=== PATIENT | female | born 1970 | race Caucasian/White ===

== ENCOUNTER 2016-12-09 08:56 | Day surgery (SDC) | payer BC ==
[~2016-12-09] VITALS: Ht 162.6 cm; Wt 64.4 kg
[~2016-12-09 08:56] MED LIST: AMOXIL500 M1 OR; ATENOLOL25 MG OR; ATENOLOL25 MG PO; ATIVAN0.5 MG PO; ATIVAN1 MG PO; B COMPLETE PO; CYCLOBENZAPRINE10 MG PO; CYMBALTA60 MG PO; DULOXETINE HCL60 MG PO; IMITREX25 MG PO; LEVOTHYROXIN25 MCG PO; LORAZEPAM1 MG PO; LORTAB 5 OR; LORTAB 5/3255 MG PO; MELOXICAM15 MG PO; NO; PERCOCET 5/321 COMBO PO; POTASSIUM CHLO20 ME1 PO; PREMARIN0.45 MG OR; PREVACID15 M1 PO; PROMETHAZINE25 MG OR; SARELLA PO; TENORMIN25 MG PO; TIZANIDINE HCL4 M1 PO; TOPAMAX50 M1 PO; VITA D-1000 OR; ZANAFLEX4 M2 OR; ZANAFLEX6 MG PO; ZOCOR10 MG PO
[2016-12-09] MEDS ORDERED: SAVELLA50 MG PO (09:04)
[2016-12-09 10:33] VITALS: BP 108/71
== END 2016-12-09 10:48 | disposition home or self-care (01) | DRG 379 ==
LOC: ENDO 08:56 → ORM 11:40 → ENDO 12:10 → ORM 21:15
PROVIDERS: ATTEND Internal Medicine Gastroenterology
PROC: 0DBE8ZX Excision of Large Intestine, Via Natural or Artificial Opening Endoscopic, Diagnostic (ICD-10-PCS; principal; 2016-12-09)
PROC: 0DBN8ZX Excision of Sigmoid Colon, Via Natural or Artificial Opening Endoscopic, Diagnostic (ICD-10-PCS; 2016-12-09)
DX: K62.5 Hemorrhage of anus and rectum (principal); K63.5 Polyp of colon; K64.4 Residual hemorrhoidal skin tags; R11.0 Nausea; K29.70 Gastritis, unspecified, without bleeding; R19.7 Diarrhea, unspecified; R63.4 Abnormal weight loss; R14.0 Abdominal distension (gaseous); M79.7 Fibromyalgia; K64.8 Other hemorrhoids

== ENCOUNTER 2017-10-27 20:37 | Emergency (ER) | payer BC ==
[~2017-10-27] VITALS: Ht 162.6 cm; Wt 71.0 kg
[~2017-10-27 20:37] MED LIST changes: +SAVELLA50 MG PO
[2017-10-27] MEDS ORDERED: CALCIUM + D3 601 TAB PO (21:09)
[2017-10-27] MEDS ORDERED: MECLIZINE25 MG PO (21:09)
[2017-10-27] MEDS ORDERED: VITAMIN B-12500 MCG PO (21:10)
[2017-10-27] MEDS ORDERED: BUSPIRONE5 MG PO (21:11)
[2017-10-27] MEDS ORDERED: ESTRADIOL0.5 MG PO (21:12)
[2017-10-27] MEDS ORDERED: PROBIOTI2 PO (21:12)
[2017-10-27] MEDS ORDERED: DOCUSATE SODIU100 MG PO (21:13)
[2017-10-27] MEDS ORDERED: TRAZODONE50 MG PO (21:13)
[2017-10-27] MEDS ORDERED: MAGNESIUM500 M1 PO (21:14)
[2017-10-27 21:26] LABS: HEMATOCRIT 40.4 % (37.0-47.0); IMMATURE GRANULOCYTES 0.3 % (0.0-1.0); MEAN CELL VOLUME 91.6 fL CALC (80.0-100.0); MEAN CORPUSCULAR HGB 31.7 pG CALC (26.0-32.0); MEAN CORPUSCULAR HGB CONC 34.7 g/L CALC (32.0-36.0); NEUT# 6.55 thou/uL (2.00-7.15); RED BLOOD COUNT 4.41 mill/uL (4.20-5.60); RED CELL DISTRI WIDTH 12.5 % (11.5-15.5)
[2017-10-27 21:27] LABS: URINE BILIRUBIN - DIPSTICK NEGATIVE (NEGATIVE); URINE BLOOD DIPSTICK NEGATIVE (NEGATIVE); URINE COLOR YELLOW; URINE GLUCOSE - DIPSTICK NEGATIVE (NEGATIVE); URINE KETONE TRACE mg/dL (NEGATIVE); URINE LEUK ESTERASE NEGATIVE (NEGATIVE); URINE NITRITE - DIPSTICK NEGATIVE (Negative); URINE PROTEIN - DIPSTICK NEGATIVE (NEG-TRACE)
[2017-10-27 21:28] LABS: URINE CLARITY SL CLOUDY
[2017-10-27 21:31] LABS: COCAINE NEGATIVE (NEGATIVE); TETRAHYDROCANNABIONOL NEGATIVE (NEGATIVE)
[2017-10-27 21:32] LABS: BARBITURATES NEGATIVE (NEGATIVE); METHADONE NEGATIVE (NEGATIVE); OXCYCODONE NEGATIVE (NEGATIVE); TRICYLIC ANTIDEPRESSANTS NEGATIVE (NEGATIVE)
[2017-10-27 21:36] LABS: ALBUMIN 4.9 g/dL (3.2-5.0); ALKALINE PHOSPHATASE 138 u/l (38-126); BILIRUBIN, TOTAL 0.4 mg/dL (0.0-1.4); BUN 16 mg/dL (7-17); BUN/CREATININE RATIO 13 (12-20 (CALC)); CHLORIDE 113 mmol/l (95-108); CREATININE 1.3 mg/dL (0.5-1.0); GFR 44 ML/MIN (>=60 (CALC)); GFR FOR AFR.AMER. 53 ML/MIN (>=60 (CALC)); SGOT/AST 30 u/l (14-36); SGPT/ALT 53 u/l (9-52); SODIUM 145 mmol/l (137-146); TOTAL PROTEIN 8.2 g/dL (6.3-8.2)
[2017-10-27 21:41] LABS: ANION GAP 17 (6-22 (CALC)); CARBON DIOXIDE 19 mmol/l (22-30); ETHYL ALCOHOL < 10 mg/dl (0-30)
[2017-10-27 21:42] LABS: INTERNATIONAL NORMALIZED RATIO 0.9 RATIO (0.7-1.3)
[2017-10-28 03:16] VITALS: BP 121/77
== END 2017-10-28 03:16 | disposition short-term general hospital (02) | DRG 948 ==
LOC: ED 20:37
PROVIDERS: Emergency Medicine
DX: R41.82 Altered mental status, unspecified (principal); M79.7 Fibromyalgia; Z91.14 Patient's other noncompliance with medication regimen
CPT/HCPCS: J2060